=== PATIENT | male | born 1990 | race Hispanic/Latino ===

== ENCOUNTER 2020-08-27 15:19 | Emergency (ER) | payer SELFPAY ==
--- NOTE | 2020-08-27 16:03 | EDPHYS ---
Physician Documentation [facility] Name: Halley Singh Jr Age: 30 yrs Sex: Male : 1990 Arrival Date: 08/27/2020 Time: 15:22 Bed DIS1 Private MD: ED Physician Dov Pride HPI: 08/27 15:50 This 30 yrs old Male presents to ER via Unassigned with complaints of Finger stella Injury - Laceration. 15:50 Trauma demographics: County: The injury occurred in [place] Location of Injury: The stella injury occurred at work. Mechanism of injury: Crush injury: from from a heavy object. Associated injuries: The patient sustained dorsal aspect of distal phalanx of left middle finger and palmar aspect of distal phalanx of left middle finger, decreased range of motion, laceration, painful injury, swelling. Onset: The symptoms/episode began/occurred just prior to arrival. The patient has not experienced similar symptoms in the past. Historical: - Allergies: 16:30 No Known Allergies; aa5 - Family history:: not pertinent. ROS: 15:51 Constitutional: Negative for fever, chills, and weight loss, Eyes: Negative for injury, stella pain, redness, and discharge, ENT: Negative for injury, pain, and discharge, Neck: Negative for injury, pain, and swelling, Cardiovascular: Negative for chest pain, palpitations, and edema, Respiratory: Negative for shortness of breath, cough, wheezing, and pleuritic chest pain, Abdomen/GI: Negative for abdominal pain, nausea, vomiting, diarrhea, and constipation, Back: Negative for injury and pain, : Negative for injury, bleeding, discharge, and swelling, Skin: Negative for injury, rash, and discoloration, Neuro: Negative for headache, weakness, numbness, tingling, and seizure, Psych: Negative for depression, anxiety, suicide ideation, homicidal ideation, and hallucinations, Allergy/Immunology: Negative for hives, rash, and allergies, Endocrine: Negative for neck swelling, polydipsia, polyuria, polyphagia, and marked weight changes, Hematologic/Lymphatic: Negative for swollen nodes, abnormal bleeding, and unusual bruising. 15:51 MS/extremity: Positive for pain, swelling, tenderness, of the palmar aspect of distal phalanx of left middle finger and left middle fingernail. Exam: 15:51 Constitutional: This is a well developed, well nourished patient who is awake, alert, stella and in no acute distress. Head/Face: Normocephalic, atraumatic. Eyes: Pupils equal round and reactive to light, extra-ocular motions intact. Lids and lashes normal. Conjunctiva and sclera are non-icteric and not injected. Cornea within normal limits. Periorbital areas with no swelling, redness, or edema. ENT: Nares patent. No nasal discharge, no septal abnormalities noted. Tympanic membranes are normal and external auditory canals are clear. Oropharynx with no redness, swelling, or masses, exudates, or evidence of obstruction, uvula midline. Mucous membranes moist. Neck: Trachea midline, no thyromegaly or masses palpated, and no cervical lymphadenopathy. Supple, full range of motion without nuchal rigidity, or vertebral point tenderness. No Meningismus. Chest/axilla: Normal chest wall appearance and motion. Nontender with no deformity. No lesions are appreciated. Cardiovascular: Regular rate and rhythm with a normal S1 and S2. No gallops, murmurs, or rubs. Normal PMI, no JVD. No pulse deficits. Respiratory: Lungs have equal breath sounds bilaterally, clear to auscultation and percussion. No rales, rhonchi or wheezes noted. No increased work of breathing, no retractions or nasal flaring. Abdomen/GI: Soft, non-tender, with normal bowel sounds. No distension or tympany. No guarding or rebound. No evidence of tenderness throughout. Back: No spinal tenderness. No costovertebral tenderness. Full range of motion. Male : Normal genitalia with no discharge or lesions. Skin: Warm, dry with normal turgor. Normal color with no rashes, no lesions, and no evidence of cellulitis. Neuro: Awake and alert, GCS 15, oriented to person, place, time, and situation. Cranial nerves II-XII grossly intact. Motor strength 5/5 in all extremities. Sensory grossly intact. Cerebellar exam normal. Normal gait. Psych: Awake, alert, with orientation to person, place and time. Behavior, mood, and affect are within normal limits. 15:51 Musculoskeletal/extremity: ROM: intact in all extremities, Circulation is intact in all extremities. Sensation intact. Compartment Syndrome exam of affected extremity: is normal. Vital Signs: 15:53 BP 143 / 94; Pulse 84; Resp 15; jl7 16:30 Pulse 80; Resp 18 S; Temp 98.0(TE); Pulse Ox 98% on R/A; aa5 MDM: 15:55 Differential diagnosis: open fracture. Data reviewed: vital signs, nurses notes, [facility] radiologic studies, plain films. Data interpreted: mission manager: not applicable for this patient encounter. rate is 75 beats/min, Pulse oximetry: on room air is 100 %. Test interpretation: by ED physician or midlevel provider: plain radiologic studies. Counseling: I had a detailed discussion with the patient and/or guardian regarding: the historical points, exam findings, and any diagnostic results supporting the discharge/admit diagnosis, radiology results, the need for outpatient follow up, for definitive care, a hand specialist. 16:03 Patient medically screened. [facility] 08/27 15:50 Order name: Hand Left 3 View XRAY [facility] 08/27 15:50 Order name: NPO; Complete Time: 16:11 [facility] 08/27 15:50 Order name: Wound Care: saline gauze; Complete Time: 06:42 [facility] Administered Medications: 16:30 Drug: Tetanus-Diphtheria Toxoid Adult 0.5 ml {[employer]: [employer]. Exp: aa5 09/17/2021. Lot #: [id number]. } Route: IM; Site: left deltoid; 16:36 Follow up: Response: [facility] 16:30 Drug: Ancef (cefazolin) 2 grams {Note: given slow IVP per pharmacy instructions at this 5 time. .} Route: IVPB; Infused Over: 30 mins; Site: right antecubital; 16:34 Follow up: Response: No adverse reaction; IV Status: [facility] 08/28 06:41 CANCELLED (VO to cancel 08/27/20 ): NS 0.9% 500 ml IV at bolus once 5 Disposition: 08/27/20 16:03 Discharged to Home. 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 - Condition is Stable. - Discharge Instructions: Traumatic Finger Amputation, Finger Fracture, Finger Fracture, [id number]. - Medication Reconciliation Form, Thank You Letter, Antibiotic Education, Prescription Opioid Use form. - Follow up: Orion Mrar; When: Upon discharge from the Emergency Department; Reason: Recheck today's complaints, Continuance of care, Re-evaluation by your physician. - Problem is new. - Symptoms have improved. Signatures: Dispatcher [employer] Dov Segura MD MD cha Calderon, Audri, RN RN aa5 Corrections: (The following items were deleted from the chart) 08/27 16:36 16:03 08/27/2020 16:03 Discharged to Home. Impression: Partial traumatic aa5 transphalangeal amputation of left middle finger. Condition is Stable. Discharge Instructions: Traumatic Finger Amputation, Finger Fracture, Finger Fracture, [id number]. Forms are Medication Reconciliation Form, Thank You Letter, Antibiotic Education, Prescription Opioid Use. Follow up: Orion Marr; When: Upon discharge from the Emergency Department; Reason: Recheck today's complaints, Continuance of care, Re-evaluation by your physician. Problem is new. Symptoms have improved. stella
--- NOTE | 2020-08-27 16:03 | ER ---
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 jl7 Coronavirus screen: Client denies travel out of the [place] in the last 14 days. At this time, the client does not indicate any symptoms associated with coronavirus-19. Ebola Screen: No symptoms or risks identified at this time. Initial Sepsis Screen: Does the patient meet any 2 criteria? No. Patient's initial sepsis screen is negative. Does the patient have a suspected source of infection? No. Patient's initial sepsis screen is negative. Risk Assessment: Do you want to hurt yourself or someone else? Patient reports no desire to harm self or others. Onset of symptoms was August 27, 2020. Care prior to arrival: None. 15:53 Method Of Arrival: EMS: [facility] jl7 15:53 Acuity: DANE 3 jl7 Historical: - Allergies: 16:30 No Known Allergies; aa5 - Family history:: not pertinent. Screenin:30 Abuse screen: Denies threats or abuse. Nutritional screening: No deficits noted. aa5 Tuberculosis screening: No symptoms or risk factors identified. Fall Risk None identified. Assessment: 16:30 General: Appears comfortable, Behavior is calm, cooperative. Pain: Complains of pain in aa5 distal phalanx of left middle finger Pain currently is 8 out of 10 on a pain scale. Quality of pain is described as sharp, throbbing, Is continuous, Aggravated by movement of finger. Neuro: Level of Consciousness is awake, alert, obeys commands, Oriented to person, place, time, situation. Cardiovascular: Patient's skin is warm and dry. Respiratory: Airway is patent Respiratory effort is even, unlabored, Respiratory pattern is regular, symmetrical. GI: No signs and/or symptoms were reported involving the gastrointestinal system. : No signs and/or symptoms were reported regarding the genitourinary system. EENT: No signs and/or symptoms were reported regarding the EENT system. Derm: Skin is pink, warm \T\ dry. Musculoskeletal: Range of motion: intact in all extremities, Partial amputation noted to distal phalanx of left middle finger, mild bleeding noted, dressing in place. 16:34 Reassessment: Left middle finger cleaned with saline and dressed with gauze. . aa5 16:36 Reassessment: Patient is alert, oriented x 3, equal unlabored respirations, skin aa5 warm/dry/pink. Vital Signs: 15:53 BP 143 / 94; Pulse 84; Resp 15; jl7 16:30 Pulse 80; Resp 18 S; Temp 98.0(TE); Pulse Ox 98% on R/A; aa5 ED Course: 15:22 Patient arrived in ED. ds1 15:48 Dov Pride MD is Attending Physician. stella 15:55 Triage completed. jl7 16:03 Orion Marr MD is Referral Physician. stella 16:06 Hand Left 3 View XRAY In Process Unspecified. EDMS 16:11 Alexandra Sánchez, TAMIE is Primary Nurse. aa5 16:30 Patient has correct armband on for positive identification. aa5 16:30 Arm band placed on. aa5 16:36 No provider procedures requiring assistance completed. Patient did not have IV access aa5 during this emergency room visit. Administered Medications: 16:30 Drug: Tetanus-Diphtheria Toxoid Adult 0.5 ml {Acquisition Consultant: [employer]. Exp: aa5 09/17/2021. Lot #: [id number]. } Route: IM; Site: left deltoid; 16:36 Follow up: Response: No adverse reaction aa5 16:30 Drug: Ancef (cefazolin) 2 grams {Note: given slow IVP per pharmacy instructions at this aa5 time. .} Route: IVPB; Infused Over: 30 mins; Site: right antecubital; 16:34 Follow up: Response: No adverse reaction; IV Status: Completed infusion aa5 06 06:41 CANCELLED (VO to cancel 08/27/20 ): NS 0.9% 500 ml IV at bolus once aa5 Outcome: 08/27 16:03 Discharge ordered by . stella 16:36 Patient left the ED. aa5 16:36 Discharged to Plastic surgeon office aa5 16:36 Condition: stable 16:36 Discharge instructions given to patient, significant other, Instructed on discharge instructions, Demonstrated understanding of instructions. Signatures: Dispatcher [employer] Dov Segura MD MD cha Sanford, Demi ds1 Alexandra Sánchez, RN RN aa5 Lissa Retana RN RN jl7
[2020-08-27] MEDS ORDERED: CEFAZOLIN/SWI 1gm 2 GM/20 ML SYR ONE (16:35)
[2020-08-27] MEDS ORDERED: TETANUS & DIPHTHERIA TOX,ADULT 0.5 ML VIAL ONE (16:35)
[2020-08-27 16:49] VITALS: BP 143/94
--- NOTE | 2020-08-27 17:18 | RAD REPORT ---
EXAM DESCRIPTION: RAD - Hand Left 3 View - 08/27/2020 4:07 pm CLINICAL HISTORY: Pain;Deformity COMPARISON: None. FINDINGS: Extensive soft tissue injury involves the distal aspect of the third digit. No foreign bod y seen in the soft tissues. Tuft fracture is present. There is cortical disruption along the radial s talya of the tuft. Although very minimal, bony injury has likely occurred in associations with the soft tissue wound. The DIP joint is intact. Remainder of the third digit is intact. The remaining digits and bony struct ures of the hand and wrist are intact. IMPRESSION: Extensive soft tissue injury to the distal aspect of the third digit. Subtle cortical deformities involving the tuft of the third distal phalanx would indicate bone involv ement with the soft tissue wound.
== END 2020-08-27 16:36 | disposition home or self-care (01) ==
LOC: ER 15:19
DX: S68.623A Partial traumatic transphalangeal amputation of left middle finger, initial encounter (principal); X58.XXXA Exposure to other specified factors, initial encounter; Y99.0 Civilian activity done for income or pay; Z23 Encounter for immunization
CPT/HCPCS: 90471; 90714; 96374; 99283; J0690